=== PATIENT | male | born 1950 | race Caucasian/White ===

== ENCOUNTER 2019-09-26 14:18 | Outpatient (REF) | payer MEDICARE, SELFPAY ==
[2019-09-26 20:42] LABS: HCT 42.8 % (40.0-50.0); HGB 14.8 g/dL (13.5-17.5); Mean Corp. HGB Concentration 34.6 g/dL (32.0-36.0); Mean Corpuscular Hemoglobin 33.9 pg (27.0-33.0); Mean Corpuscular Volume 97.9 fL (80-95); Mean Platelet Volume 9.8 fL (8.0-11.0); Platelet Count 276 x1000/uL (130-400); RBC 4.37 m/cumm (4.50-6.00); RBC Distribution Width 12.8 % (11.8-14.1); White Blood Cell Count 6.62 k/cumm (4.4-10.8)
[2019-09-26 21:01] LABS: ALT 22 U/L (16-63); AST 18 U/L (15-37); Alkaline Phosphatase 75 U/L (46-116); Anion Gap 7.8 mmol/L (3-11); BUN 28 mg/dL (7-18); Bilirubin, Total 0.4 mg/dL (0.2-1.0); CO2 30.2 mmol/L (21.0-32.0); CREATININE 1.28 mg/dL (0.70-1.30); Calcium 9.5 mg/dL (8.5-10.1); Chloride 101 mmol/L (98-107); Estimated GFR 55.56 (mL/min/1.73m2); Glucose 134 mg/dL (74-106); Potassium 4.1 mmol/L (3.5-5.1); Sodium 139 mmol/L (136-145); TSH (W/Ref FT4) 2.35 uIU/mL (0.36-3.74); Total Protein 6.5 g/dL (6.4-8.2)
[2019-10-05 17:18] LABS: Testosterone, Free 2.23 ng/dL (3.28-12.2); Testosterone, Total 159 ng/dL (240-950)
== END 2019-09-26 14:38 ==
LOC: NCHCN 14:18
PROVIDERS: PCP Family Medicine; Visit Provider Family Medicine
DX: R53.83 Other fatigue (principal)
CPT/HCPCS: 80053; 84402; 84403; 85027; 84443

== ENCOUNTER 2019-10-13 12:15 | Outpatient (REF) | payer MEDICARE, SELFPAY ==
[2019-10-17 13:13] LABS: Testosterone, Free 1.96 ng/dL (3.28-12.2); Testosterone, Total 140 ng/dL (240-950)
== END 2019-10-13 12:35 ==
LOC: NCHCN 12:15
PROVIDERS: PCP Family Medicine; Visit Provider Family Medicine
DX: R53.83 Other fatigue (principal)
CPT/HCPCS: 84402; 84403

== ENCOUNTER 2020-08-23 19:48 | Outpatient (REF) | payer MEDICARE, SELFPAY ==
[2020-08-23 21:02] LABS: Microalb ug/mg Crea 62.3 ug/mg Cr
== END 2020-08-23 20:08 ==
LOC: NCHCN 19:48
PROVIDERS: PCP Family Medicine; Visit Provider Family Medicine
DX: R73.03 Prediabetes (principal)
CPT/HCPCS: 82043; 82570

== ENCOUNTER 2021-05-11 08:48 | Outpatient (REF) | payer MEDICARE, SELFPAY ==
[2021-05-14 17:39] LABS: Testosterone, Total 192 ng/dL (240-950)
== END 2021-05-11 08:49 | disposition home or self-care (01) ==
LOC: NCHCN 08:48
PROVIDERS: PCP Family Medicine; Referring Provider Family Medicine; Visit Provider Family Medicine
DX: E29.1 Testicular hypofunction (principal)
CPT/HCPCS: 82533; 84403

== ENCOUNTER 2021-07-18 18:38 | Outpatient (REF) | payer MEDICARE, SELFPAY ==
[2021-07-21 13:06] LABS: Testosterone, Total 152 ng/dL (240-950)
== END 2021-07-18 18:39 | disposition home or self-care (01) ==
LOC: NCHCN 18:38
PROVIDERS: PCP Family Medicine; Visit Provider Family Medicine
DX: E29.1 Testicular hypofunction (principal)
CPT/HCPCS: 84403